=== PATIENT | male | born 1980 | race American Indian/Alaskan Native ===

== ENCOUNTER 2020-12-10 13:36 | Emergency (ER) | payer BC, OTHER ==
[2020-12-10] MEDS ORDERED: KETOROLAC 60 MG/2 ML INJ IM ONE (13:43)
[2020-12-10] MEDS ORDERED: dexAMETHasone 4 MG/ML VIAL IM ONE (13:43)
[2020-12-10] MEDS ORDERED: CYCLOBENZAPRINE 10 MG TAB PO ONE (13:43)
--- NOTE | 2020-12-10 14:22 | Emergency Department Report ---
ED Neck Pain/Injury HPI - General Chief Complaint: Neck Pain/Injury Stated Complaint: LT SIDE TINGLING Time Seen by Provider: 12/10/20 13:43 Mode of arrival: Ambulatory Limitations: No Limitations - History of Present Illness Initial Comments: Patient is a 40-year-old male presents emergency room complaints of left-sided neck pain that began this morning when he woke up. He states that this morning when he woke up he felt like he had a "crick in the neck" like he may have slept wrong. He denies any fall or injury. He states he then began having tingling in his left arm. He denies any complete numbness. He denies any weakness, headache, vision changes, speech disturbance, gait disturbance, fever, neck stiffness. No past medical history. No allergies to medications. - Related Data Previous Rx's Medication Instructions Recorded Last Taken Type Cyclobenzaprine [Flexeril 10mg] 10 mg PO TID PRN #30 tablet 02/07/14 Unknown Rx HYDROcodone/APAP 5-325 [[place] 1 each PO Q6HR PRN #20 tablet 02/07/14 Unknown Rx 5/325] Ibuprofen [Motrin] 800 mg PO TID PRN #40 tablet 02/07/14 Unknown Rx Menthol/Camphor [[place] 1 applicatio TP BID #18 oint...g. 12/10/20 Unknown Rx Ointment] Naproxen 500 mg PO BID PRN #20 tablet 12/10/20 Unknown Rx methOCARBAMOL [Robaxin TAB] 500 mg PO BID PRN #14 tab 12/10/20 Unknown Rx Allergies Allergy/AdvReac Type Severity Reaction Status Date / Time No Known Allergies Allergy Unverified 02/07/14 09:46 ED Review of Systems ROS: Stated complaint: LT SIDE TINGLING Other details as noted in HPI Comment: All other systems reviewed and negative ED Past Medical Hx - Past Medical History Previous Medical History?: No - Surgical History Past Surgical History?: No - Social History Smoking Status: Current Every Day Smoker Substance Use Type: Alcohol - Medications Home Medications: Home Medications Medication Instructions Recorded Confirmed Last Taken Type Cyclobenzaprine [Flexeril 10mg] 10 mg PO TID PRN #30 tablet 02/07/14 Unknown Rx HYDROcodone/APAP 5-325 [[place] 1 each PO Q6HR PRN #20 tablet 02/07/14 Unknown Rx 5/325] Ibuprofen [Motrin] 800 mg PO TID PRN #40 tablet 02/07/14 Unknown Rx Menthol/Camphor [[place] 1 applicatio TP BID #18 oint...g. 12/10/20 Unknown Rx Ointment] Naproxen 500 mg PO BID PRN #20 tablet 12/10/20 Unknown Rx methOCARBAMOL [Robaxin TAB] 500 mg PO BID PRN #14 tab 12/10/20 Unknown Rx ED Physical Exam - General Limitations: No Limitations General appearance: alert, in no apparent distress - Head Head exam: Present: atraumatic, normocephalic - Eye Eye exam: Present: normal appearance - ENT ENT exam: Present: mucous membranes moist - Neck Neck exam: Present: normal inspection, tenderness (left sided c-spine paraspinal ttp, no midline c-spine ttp, no step offs, no deformities ), full ROM. Absent: meningismus - Respiratory Respiratory exam: Present: normal lung sounds bilaterally. Absent: respiratory distress, wheezes, rales, rhonchi, stridor, chest wall tenderness, accessory muscle use, decreased breath sounds, prolonged expiratory - Cardiovascular Cardiovascular Exam: Present: regular rate, normal rhythm, normal heart sounds. Absent: systolic murmur, diastolic murmur, rubs, gallop - Back Exam Back exam: Present: normal inspection, full ROM. Absent: paraspinal tenderness, vertebral tenderness - Neurological Exam Neurological exam: Present: alert, oriented X3, CN II-XII intact, normal gait. Absent: motor sensory deficit - Psychiatric Psychiatric exam: Present: normal affect, normal mood - Skin Skin exam: Present: warm, dry, intact ED Course Vital Signs 12/10/20 12/10/20 13:40 15:57 Temperature 97.6 F 98.1 F Pulse Rate 86 84 Respiratory 18 18 Rate Blood Pressure 161/102 Blood Pressure 162/97 [Right] O2 Sat by Pulse 99 99 Oximetry ED Medical Decision Making - Lab Data Vital Signs 12/10/20 12/10/20 13:40 15:57 Temperature 97.6 F 98.1 F Pulse Rate 86 84 Respiratory 18 18 Rate Blood Pressure 161/102 Blood Pressure 162/97 [Right] O2 Sat by Pulse 99 99 Oximetry - Medical Decision Making Patient is a 40-year-old male presents emergency room complaints of left-sided neck pain that began this morning when he woke up. He states that this morning when he woke up he felt like he had a "crick in the neck" like he may have slept wrong. He denies any fall or injury. He states he then began having tingling in his left arm. He denies any complete numbness. He denies any weakness, headache, vision changes, speech disturbance, gait disturbance, fever, neck stiffness. No past medical history. No allergies to medications. vss. on exam: left sided c-spine paraspinal ttp, no midline c-spine ttp, no step offs, no deformities, no focal neuro deficits on exam, 5 out of 5 muscle strength, sensation intact. Examination appears likely consistent with cervical radiculopathy versus muscle strain. No acute trauma. Patient given medications while in the emergency department with improvement of symptoms. Discussed the importance of outpatient follow-up. Discussed return precautions. Discussed case with Dr. Melendez, ER attending who is agreeable with plan. Advised patient Please use medication as prescribed. May use ice 15 minutes at a time, rest, Epsom salt bath, heating pad. Do not use heat or ice while using Lynn balm. Follow-up with your primary care doctor. Follow-up with a computer help desk specialist. Return to emergency room for any new or worsening symptoms. Critical care attestation.: If time is entered above; I have spent that time in minutes in the direct care of this critically ill patient, excluding procedure time. ED Disposition Clinical Impression: Neck pain, Tingling of left upper extremity Disposition: 01 HOME / SELF CARE / HOMELESS Is pt being admited?: No Does the pt Need Aspirin: No Condition: Stable Instructions: Cervical Radiculopathy Additional Instructions: Please use medication as prescribed. May use ice 15 minutes at a time, rest, Epsom salt bath, heating pad. Do not use heat or ice while using Lynn balm. Follow-up with your primary care doctor. Follow-up with a computer help desk specialist. Return to emergency room for any new or worsening symptoms. Prescriptions: Naproxen 500 mg PO BID PRN #20 tablet PRN Reason: pain methOCARBAMOL [Robaxin TAB] 500 mg PO BID PRN #14 tab PRN Reason: muscle spasm/pain Menthol/Camphor [[place] Ointment] 1 applicatio TP BID #18 oint...g. Referrals: TU WHATLEY MD [Staff Physician] - 3-5 Days [facility] [Provider Group] - 3-5 Days MINDI WELLS II, MD [Staff Physician] - 3-5 Days (computer help desk specialist ) Forms: Work/School Release Form(ED) Time of Disposition: 15:09 Print Language: POLISH
[2020-12-10] MEDS ORDERED: oxyCODONE /ACETAMINOPHEN 5-325MG TAB PO ONE (14:52)
[2020-12-10 15:58] VITALS: BP 162/97
== END 2020-12-10 15:57 | disposition home or self-care (01) ==
LOC: ED 13:36
DX: M54.2 Cervicalgia (principal); R20.2 Paresthesia of skin; F17.200 Nicotine dependence, unspecified, uncomplicated
CPT/HCPCS: 96372; 99282; J1100; J1885

== ENCOUNTER 2020-12-25 14:09 | Emergency (ER) | payer BC ==
--- NOTE | 2020-12-25 15:16 | Emergency Department Report ---
ED Neck Pain/Injury HPI - General Chief Complaint: Neck Pain/Injury Stated Complaint: LT SIDE NECK AND SHOULDER PAIN Time Seen by Provider: 12/25/20 14:50 Mode of arrival: Ambulatory Limitations: No Limitations - History of Present Illness Initial Comments: 40-year-old -[place] male presents to the was discharged home with neck pain and to follow-up with neurology primary care but patient did not follow-up. Patient reports that the pain to the left side of his notes radiates to his arm. He states that he had no injury but woke up that way. Patient was seen here on 12/10/2020 given prescription for Robaxin naproxen and [place] balm. He was referred to neurology and primary care. Patient states he has a primary care appointment January 01. He did not follow-up with the neurologist we referred him to. Patient states then on 12/16/2020 he went to [place] and they placed him on Tylenol 3 and prednisone states that medicine helped. Patient comes in today requesting an MRI. Patient also coming in requesting narcotics. Patient reports he did go to neurology but they requiring that he pays over $400 for his MRI as as his deductible. Patient states he does not have that type of money and comes here to seek care. Onset/Timin -: week(s) Radiation: left lateral, left shoulder, left upper extremity Severity: severe Severity scale (0 -10): 9 Quality: sharp, stabbing Consistency: constant Improves With: medication OTC/prescribe (Narcotics) Worsens With: none Context: other (Slept wrong denies any injury) Treatments Prior to Arrival: none - Related Data Previous Rx's Medication Instructions Recorded Last Taken Type Cyclobenzaprine [Flexeril 10mg] 10 mg PO TID PRN #30 tablet 02/07/14 Unknown Rx HYDROcodone/APAP 5-325 [[place] 1 each PO Q6HR PRN #20 tablet 02/07/14 Unknown Rx 5/325] Ibuprofen [Motrin] 800 mg PO TID PRN #40 tablet 02/07/14 Unknown Rx Menthol/Camphor [[place] 1 applicatio TP BID #18 oint...g. 12/10/20 Unknown Rx Ointment] Naproxen 500 mg PO BID PRN #20 tablet 12/10/20 Unknown Rx methOCARBAMOL [Robaxin TAB] 500 mg PO BID PRN #14 tab 12/10/20 Unknown Rx Allergies Allergy/AdvReac Type Severity Reaction Status Date / Time No Known Allergies Allergy Unverified 02/07/14 09:46 ED Review of Systems ROS: Stated complaint: LT SIDE NECK AND SHOULDER PAIN Other details as noted in HPI Comment: All other systems reviewed and negative Gastrointestinal: denies: nausea, vomiting Neurological: denies: headache, weakness, numbness, paresthesias ED Past Medical Hx - Social History Smoking Status: Current Every Day Smoker Substance Use Type: Alcohol - Medications Home Medications: Home Medications Medication Instructions Recorded Confirmed Last Taken Type Cyclobenzaprine [Flexeril 10mg] 10 mg PO TID PRN #30 tablet 02/07/14 Unknown Rx HYDROcodone/APAP 5-325 [[place] 1 each PO Q6HR PRN #20 tablet 02/07/14 Unknown Rx 5/325] Ibuprofen [Motrin] 800 mg PO TID PRN #40 tablet 02/07/14 Unknown Rx Menthol/Camphor [[place] 1 applicatio TP BID #18 oint...g. 12/10/20 Unknown Rx Ointment] Naproxen 500 mg PO BID PRN #20 tablet 12/10/20 Unknown Rx methOCARBAMOL [Robaxin TAB] 500 mg PO BID PRN #14 tab 12/10/20 Unknown Rx ED Physical Exam - General Limitations: No Limitations General appearance: alert, in no apparent distress - Head Head exam: Present: atraumatic, normocephalic - Eye Eye exam: Present: normal appearance - ENT ENT exam: Present: mucous membranes moist - Neck Neck exam: Present: normal inspection - Respiratory Respiratory exam: Present: normal lung sounds bilaterally. Absent: respiratory distress - Cardiovascular Cardiovascular Exam: Present: regular rate, normal rhythm. Absent: systolic murmur, diastolic murmur, rubs, gallop - GI/Abdominal GI/Abdominal exam: Present: soft, normal bowel sounds - Rectal Rectal exam: Present: deferred - Extremities Exam Extremities exam: Present: normal inspection - Back Exam Back exam: Present: normal inspection - Neurological Exam Neurological exam: Present: alert, oriented X3 - Psychiatric Psychiatric exam: Present: normal affect, normal mood - Skin Skin exam: Present: warm, dry, intact, normal color. Absent: rash ED Medical Decision Making - Medical Decision Making 40-year-old -[place] male presents to the was discharged home with neck pain and to follow-up with neurology primary care but patient did not follow-up. Patient reports that the pain to the left side of his notes radiates to his arm. He states that he had no injury but woke up that way. Patient was seen here on 12/10/2020 given prescription for Robaxin naproxen and [place] balm. He was referred to neurology and primary care. Patient states he has a primary care appointment January 01. He did not follow-up with the neurologist we referred him to. Patient states then on 12/16/2020 he went to [place] and they placed him on Tylenol 3 and prednisone states that medicine helped. Patient comes in today requesting an MRI. Patient also coming in requesting narcotics. Patient reports he did go to neurology but they requiring that he pays over $400 for his MRI as as his deductible. Patient states he does not have that type of money and comes here to seek care. Discussed with patient that he needs to follow-up with a neurologist. Take [id number] ibuprofen Tylenol pain medication that was prescribed to him by us before. Critical care attestation.: If time is entered above; I have spent that time in minutes in the direct care of this critically ill patient, excluding procedure time. ED Disposition Clinical Impression: Cervical radiculopathy Disposition: 01 HOME / SELF CARE / HOMELESS Is pt being admited?: No Does the pt Need Aspirin: No Condition: Stable Instructions: Cervical Radiculopathy, [id number] Additional Instructions: Please take pain medication that was prescribed to you earlier this month. Is very important you follow-up with your primary care provider and neurologist. Referrals: MINDI WELLS II, MD [Staff Physician] - 3-5 Days Forms: Work/School Release Form(ED)
== END 2020-12-25 15:48 | disposition home or self-care (01) ==
LOC: ED 14:09
DX: M54.12 Radiculopathy, cervical region (principal); M25.511 Pain in right shoulder; F17.200 Nicotine dependence, unspecified, uncomplicated; Z72.89 Other problems related to lifestyle
CPT/HCPCS: 99281

== ENCOUNTER 2021-01-28 10:24 | Outpatient (CLI) | payer BC ==
--- NOTE | 2021-01-28 13:53 | Magnetic Resonance Report ---
MRI left shoulder without contrast INDICATION: PAIN IN LEFT SHOULDER. COMPARISON: None FINDINGS: No acute osseous abnormality, malalignment, or significant degenerative change. The labrum is intact. The biceps tendon is intact. Minimal rotator cuff tendinosis is present involving primarily the supraspinatus and infraspinatus te ndons. No cuff tear or bursitis. IMPRESSION: Minimal rotator cuff tendinosis. Otherwise unremarkable exam. Signer Name: Dominic Medrano MD Signed: 01/28/2021 1:49 PM Workstation Name: [id number]
== END 2021-01-28 10:25 | disposition home or self-care (01) ==
LOC: MRI 10:24
PROVIDERS: ATTEND Internal Medicine
DX: M25.512 Pain in left shoulder (principal); M77.8 Other enthesopathies, not elsewhere classified